=== PATIENT | female | born 1935 | race Caucasian/White ===

== ENCOUNTER 2024-11-04 13:51 | Inpatient (IN) | payer MEDICARE, OTHER ==
[~2024-11-04] VITALS: Ht 152.4 cm; Wt 81.4 kg
[2024-11-04 15:09] LABS: PLATELET COUNT (AUTO) 167 K/uL (179-408); RED BLOOD CELL COUNT(AUTO) 3.68 MIL/uL (3.63-4.92); RED CELL DISTRIBUTION WIDTH 14.6 % (12.3-17.7); WHITE BLOOD COUNT (AUTO) 9.3 K/uL (3.8-11.8)
[2024-11-04 15:17] LABS: CREATININE 2.5 mg/dL (0.6-1.3); SODIUM SERUM 142 mmol/L (136-145); UREA NITROGEN, BLOOD 41 mg/dL (7-18)
[2024-11-04 15:23] LABS: ASPARTATE AMINOTRANSFERASE 15 U/L (15-37); TOTAL PROTEIN, SERUM 6.2 g/dL (6.4-8.2)
[2024-11-04 16:46] LABS: *BILIRUBIN,URIN NEGATIVE (NEGATIVE); *BLOOD, URINE NEGATIVE (NEGATIVE); *CLARITY,URINE CLEAR (CLEAR); *COLOR,URINE YELLOW (YELLOW); *KETONES,URINE NEGATIVE (NEGATIVE); *PROTEIN,URINE 2+ (NEGATIVE); *UROBILINOGEN,URINE 0.2 E.U./dl (NORMAL); LEUKOCYTE ESTERASE ,URINE NEGATIVE (NEGATIVE); NITRITE, URINE NEGATIVE (NEGATIVE); UGLUCOSE TRACE (NEGATIVE)
[2024-11-04 16:55] LABS: SQUAMOUS EPITHELIAL CELL,UR FEW /HPF (NONE SEEN)
[2024-11-04] MEDS ORDERED: HUM INSULIN NPH/REG INSULIN HM 70/30 1000 UNITS/10 ML VIAL SQ ONE (16:55)
[2024-11-04] MEDS: INSULIN REGULAR, HUMAN 1000 UNIT/10 ML VIAL SQ ONE (17:18)
[2024-11-04] MEDS: IV NS 1000 ML 1,000 ML IV ONE (17:18)
[2024-11-04 17:26] VITALS: BP 156/70
[2024-11-04] MEDS ORDERED: ACETAMINOPHEN 325 MG TABLET PO PRN (18:30)
[2024-11-04] MEDS ORDERED: DEXTROSE 50% 50 ML DISP.SYRIN IV PRN (18:30)
[2024-11-04] MEDS ORDERED: IV NS 1000 ML 1,000 ML IV SCH (18:30)
[2024-11-04] MEDS ORDERED: MISCELLANEOUS MED XX PRN (18:30)
[2024-11-04] MEDS ORDERED: MAGNESIUM HYDROXIDE 30 ML LIQUID UDC PO PRN (18:30)
[2024-11-04] MEDS ORDERED: MORPHINE SULFATE 2 MG/1 ML DISP.SYRIN IVP PRN (18:30)
[2024-11-04 18:32] VITALS: BP 181/71; TEMP 98.2; O2SAT 97
[2024-11-04] MEDS ORDERED: DEXL60CA3 PO (18:51)
[2024-11-04] MEDS ORDERED: HYDR100T27 PO (18:51)
[2024-11-04] MEDS ORDERED: MEMA10TA PO (18:51)
[2024-11-04] MEDS ORDERED: SITA100T PO (18:51)
[2024-11-04] MEDS ORDERED: ALEN70TA80 PO (18:51)
[2024-11-04] MEDS ORDERED: APIX2.5T PO (18:51)
[2024-11-04] MEDS ORDERED: LOSA100T31 PO (18:51)
[2024-11-04] MEDS ORDERED: ROSU20TA2 PO (18:51)
[2024-11-04] MEDS ORDERED: FERR-68 PO (18:51)
[2024-11-04] MEDS ORDERED: CLOP75TA33 PO (18:51)
[2024-11-04] MEDS ORDERED: FURO80TA3 PO (18:51)
[2024-11-04] MEDS ORDERED: METO-357 PO (18:51)
[2024-11-04] MEDS ORDERED: LINA145C PO (18:51)
[2024-11-04] MEDS ORDERED: CLON0.2T PO (18:51)
[2024-11-04 19:14] LABS: CREATININE 2.5 mg/dL (0.6-1.3); SODIUM SERUM 145 mmol/L (136-145); UREA NITROGEN, BLOOD 40 mg/dL (7-18)
[2024-11-04 19:25] VITALS: BP 144/76; TEMP 97.4; O2SAT 94
[2024-11-04] MEDS ORDERED: VALPROIC ACID 250 MG CAPSULE PO SCH (20:00)
[2024-11-04] MEDS: BLOOD SUGAR DIAGNOSTIC 1 EACH STRIP VI SCH (20:21)
[2024-11-04] MEDS: APIXABAN 2.5 MG TABLET PO SCH (20:24)
[2024-11-04] MEDS: INSULIN REGULAR, HUMAN 300 UNITS/3 ML VIAL SQ PRN (20:24)
[2024-11-04] MEDS: VALPROIC ACID 250 MG/5 ML LIQUID UDC PO SCH (21:30)
[2024-11-04 23:33] VITALS: BP 136/69; TEMP 98.1; O2SAT 96
[2024-11-05 05:34] VITALS: BP 142/70; TEMP 98.2; O2SAT 99
[2024-11-05] MEDS: PANTOPRAZOLE SODIUM 40 MG TABLET.DR PO SCH (06:13)
[2024-11-05 06:49] LABS: PLATELET COUNT (AUTO) 167 K/uL (179-408); RED BLOOD CELL COUNT(AUTO) 3.70 MIL/uL (3.63-4.92); RED CELL DISTRIBUTION WIDTH 14.9 % (12.3-17.7); WHITE BLOOD COUNT (AUTO) 8.6 K/uL (3.8-11.8)
[2024-11-05 07:14] LABS: ASPARTATE AMINOTRANSFERASE 18 U/L (15-37); CREATININE 2.2 mg/dL (0.6-1.3); SODIUM SERUM 147 mmol/L (136-145); TOTAL PROTEIN, SERUM 6.0 g/dL (6.4-8.2); UREA NITROGEN, BLOOD 38 mg/dL (7-18); VALPROIC ACID 25 ug/mL (50-100)
[2024-11-05 07:37] VITALS: BP 152/75; TEMP 97.5; O2SAT 95
[2024-11-05] MEDS: LOSARTAN POTASSIUM 50 MG TABLET PO SCH (08:45)
[2024-11-05] MEDS: DIVALPROEX 250 MG TABLET.DR PO SCH (08:45)
[2024-11-05] MEDS: METOPROLOL SUCCINATE XL 50 MG TAB.SR.24H PO SCH (08:46)
[2024-11-05] MEDS: CLOPIDOGREL 75 MG TABLET PO SCH (08:46)
[2024-11-05] MEDS: FERROUS SULFATE 325 MG TABEC PO SCH (08:47)
[2024-11-05] MEDS: MEMANTINE HCL 10 MG TABLET PO SCH (08:49)
[2024-11-05] MEDS: INSULIN REGULAR, HUMAN 1000 UNIT/10 ML VIAL SQ PRN (08:51)
[2024-11-05] MEDS ORDERED: APIXABAN 2.5 MG TABLET PO SCH (09:00)
[2024-11-05] MEDS ORDERED: FUROSEMIDE 40 MG TABLET PO SCH (09:00)
[2024-11-05] MEDS ORDERED: DIVA125C5 PO (09:01)
[2024-11-05] MEDS: ONDANSETRON 4 MG/2 ML VIAL IV PRN (09:01)
[2024-11-05] MEDS ORDERED: IBUP-1955 PO (09:06)
[2024-11-05] MEDS ORDERED: DULO30CA52 PO (09:07)
[2024-11-05] MEDS ORDERED: MEMA28CA5 PO (09:15)
[2024-11-05] MEDS: POTASSIUM CHLORIDE 10 MEQ TAB.PRT.SR PO ONE (10:41)
[2024-11-05 11:38] VITALS: BP 132/57; TEMP 97.6; O2SAT 94
[2024-11-05 16:00] VITALS: BP 103/49; TEMP 98.3; O2SAT 97
[2024-11-05 19:50] VITALS: BP 108/51; TEMP 97.7; O2SAT 93
[2024-11-05] MEDS: ATORVASTATIN 40 MG TABLET PO SCH (20:39)
[2024-11-05 22:59] LABS: *BILIRUBIN,URIN 1+ (NEGATIVE); *CLARITY,URINE TURBID (CLEAR); *COLOR,URINE YELLOW (YELLOW); *KETONES,URINE TRACE (NEGATIVE); *PROTEIN,URINE 3+ (NEGATIVE); *UROBILINOGEN,URINE 0.2 E.U./dl (NORMAL); LEUKOCYTE ESTERASE ,URINE 2+ (NEGATIVE); NITRITE, URINE NEGATIVE (NEGATIVE); UGLUCOSE NEGATIVE (NEGATIVE)
[2024-11-05 23:06] LABS: *BLOOD, URINE TRACE (NEGATIVE)
[2024-11-05 23:07] LABS: *CREATININE,URINE 212.5 mg/dL (30-125); *SODIUM RNDM,URINE 21.0 mmol/L (40-220); *URINE TOTAL PROTEIN RANDOM 143.6 mg/dL (<150/24HR)
[2024-11-05 23:22] LABS: SQUAMOUS EPITHELIAL CELL,UR FEW /HPF (NONE SEEN)
[2024-11-05 23:28] LABS: YEAST,URINE MANY /HPF (NONE SEEN)
[2024-11-06 00:03] VITALS: BP 122/67; TEMP 97.7; O2SAT 92
[2024-11-06 04:22] VITALS: BP 109/68; TEMP 97.5; O2SAT 96
[2024-11-06 06:46] LABS: PLATELET COUNT (AUTO) 162 K/uL (179-408); RED BLOOD CELL COUNT(AUTO) 3.52 MIL/uL (3.63-4.92); RED CELL DISTRIBUTION WIDTH 15.0 % (12.3-17.7); WHITE BLOOD COUNT (AUTO) 8.8 K/uL (3.8-11.8)
[2024-11-06 07:00] LABS: ASPARTATE AMINOTRANSFERASE 22 U/L (15-37); CREATINE KINASE, TOTAL 49 U/L (26-192); CREATININE 2.3 mg/dL (0.6-1.3); SODIUM SERUM 146 mmol/L (136-145); TOTAL PROTEIN, SERUM 5.8 g/dL (6.4-8.2); UREA NITROGEN, BLOOD 41 mg/dL (7-18)
[2024-11-06 08:00] VITALS: BP 119/66; TEMP 98; O2SAT 97
[2024-11-06] MEDS ORDERED: DIVA250T4 PO (10:19)
[2024-11-06] MEDS ORDERED: INSU100V7 SQ (10:19)
[2024-11-06] MEDS ORDERED: ATOR40TA PO (10:19)
[2024-11-06] MEDS ORDERED: APIX2.5T PO (10:19)
[2024-11-06 11:50] VITALS: BP 123/53; TEMP 98; O2SAT 96
[2024-11-07 07:12] LABS: PTH, INTACT 53 pg/mL (15-65)
== END 2024-11-06 13:25 | disposition home health service (06) | DRG 683 ==
LOC: ER 13:51 → MEDSURG3 17:54 → TELE3 18:52
PROVIDERS: ADMIT Internal Medicine; ATTEND Internal Medicine
PROC: 0T9B70Z Drainage of Bladder with Drainage Device, Via Natural or Artificial Opening (ICD-10-PCS; principal; 2024-11-04)
DX: N17.9 Acute kidney failure, unspecified (principal); I13.0 Hypertensive heart and chronic kidney disease with heart failure and stage 1 through stage 4 chronic kidney disease, or unspecified chronic kidney disease; I50.22 Chronic systolic (congestive) heart failure; I12.9 Hypertensive chronic kidney disease with stage 1 through stage 4 chronic kidney disease, or unspecified chronic kidney disease; Z66 Do not resuscitate; D69.6 Thrombocytopenia, unspecified; N17.8 Other acute kidney failure; R33.9 Retention of urine, unspecified; I25.5 Ischemic cardiomyopathy; Z95.810 Presence of automatic (implantable) cardiac defibrillator; Z98.61 Coronary angioplasty status; I48.0 Paroxysmal atrial fibrillation; E11.22 Type 2 diabetes mellitus with diabetic chronic kidney disease; I25.10 Atherosclerotic heart disease of native coronary artery without angina pectoris; Z86.73 Personal history of transient ischemic attack (TIA), and cerebral infarction without residual deficits; K59.00 Constipation, unspecified; E11.51 Type 2 diabetes mellitus with diabetic peripheral angiopathy without gangrene; F03.90 Unspecified dementia, unspecified severity, without behavioral disturbance, psychotic disturbance, mood disturbance, and anxiety; E66.9 Obesity, unspecified; Z68.35 Body mass index [BMI] 35.0-35.9, adult; N18.9 Chronic kidney disease, unspecified; Z84.19 Family history of other disorders of kidney and ureter; Z79.01 Long term (current) use of anticoagulants; Z87.440 Personal history of urinary (tract) infections
CPT/HCPCS: 36415; 71045; 80164; 83605; 83735; 83970; 84100; 84155; 84165; 84300; 85025; 87040; 87086; 93307; A6213; G0378; J1815; J2405; J3490; J7040